=== PATIENT | male | born 1995 | race Caucasian/White ===

== ENCOUNTER 2018-03-16 14:08 | Emergency (ER) | payer OTHER ==
[2018-03-16] MEDS ORDERED: PROCHLORPERAZINE INJ 5 MG/ML 2 ML VIAL IV PRN (14:39)
[2018-03-16 14:41] LABS: ABS Basophils 0 10^3/ul (0-0.2); ABS Eosinophils 0.8 10^3/ul (0-0.6); ABS Lymphocytes 3.1 10^3/ul (1.0-4.8); ABS Monocytes 0.7 10^3/ul (0-0.8); ABS Neutrophils 3.9 10^3/ul (1.5-7.7); ABS Nucleated RBC 0.1 10^3/ul; Eosinophil % 9.2 % (0-6); Hematocrit 44 % (42-52); Hemoglobin 15.6 g/dl (14.0-18.0); Mean Corpuscular HGB Conc 35 g/dl (31-36); Mean Corpuscular Hemoglobin 28 pg (27-31); Mean Corpuscular Volume 79 fL (80-94); Mean Platelet Volume 9.1 um3 (7.4-10.4); Nucleated Red Blood Cells % 0.8; Platelet Count 195 10^3/ul (150-450); Red Blood Count 5.59 10^6/ul (4.0-5.4); Red Cell Distribution Width 13 % (10.5-15); White Blood Count 8.5 10^3/ul (3.5-10.8)
[2018-03-16 14:50] LABS: EGFR Non-African American 87.4 (>60)
[2018-03-16] MEDS ORDERED: PROCHLORPERAZINE INJ 5 MG/ML 2 ML VIAL ONE (14:51)
--- NOTE | 2018-03-16 19:34 | ED ---
Monico Rasmussen Stephanie, scribed for Gerardo Rock MD on 03/16/18 at 1425 . Substance Abuse/Use - HPI Summary HPI Summary: The pt is a 22 y/o M BIB police due to LOC on sidewalk. Per police, the pt has consumed alcohol and possible unknown drugs. Per police, the pt was found with a white powdery substance in his nose. He vomited on the way to the ED. HPI limited due to current AMS of the pt. - History Of Current Complaint Stated Complaint: 2208 Hx Obtained From: EMS, Other: - police Hx From Patient Unobtainable Due To: Altered Mental Status Onset/Duration of Drug/ETOH Abuse: Hours Ingestion History: Type/Name Of Drug - ETOH and possible unknown drugs ( according to police) Timing Of Abuse: Binge Use Severity Currently: Severe Character: Stuporous Aggravating Factor(s): Nothing Alleviating Factor(s): Nothing - Allergies/Home Medications Allergies/Adverse Reactions: Allergies Allergy/AdvReac Type Severity Reaction Status Date / Time No Known Allergies Allergy Verified 03/16/18 15:02 Home Medications: Home Medications NK [No Home Medications Reported] 03/16/18 [History Confirmed 03/16/18] PMH/Surg Hx/FS Hx/Imm Hx Sensory History: Denies: Hx Legally Blind EENT History: Denies: Hx Deafness - Surgical History Surgery Procedure, Year, and Place: unknown due to current AMS of pt Infectious Disease History: No Infectious Disease History: Denies: Traveled Outside the [place] in Last 30 Days - Family History Known Family History: Positive: Unknown - Unknown to current AMS of the pt - Social History Occupation: Student Lives: Dormitory/Roommates Alcohol Use: osvaldo Alcohol Amount: OSVALDO Substance Use Type: Reports: None Substance Use Comment - Amount & Last Used: OSVALDO Smoking Status (MU): Unknown if Ever Smoked Review of Systems - ROS Summary Review of Systems Summary: ROS limited due to current AMS of the pt. Positive: Vomiting All Other Systems Reviewed And Are Negative: No Physical Exam - Summary Physical Exam Summary: Appearance: The patient is well-nourished in no acute distress and in no acute pain. No signs of trauma. Skin: The skin is warm and dry and skin color reflects adequate perfusion. HEENT: The head is normocephalic and atraumatic. The pupils are 3-4 mm, equal and reactive. The conjunctivae are clear and without drainage. Nares are patent and without drainage. Mouth reveals moist mucous membranes and the throat is without erythema and exudate. The external ears are intact. The ear canals are patent and without drainage. The tympanic membranes are intact. Neck: the neck is supple with full range of motion and non-tender. There are no carotid bruits. There is no neck vein distension. Respiratory: Chest is non-tender. Lungs are clear to auscultation and breath sounds are symmetrical and equal. Cardiovascular: Heart is regular rate and rhythm. There is no murmur or rub auscultated. There is no peripheral edema and pulses are symmetrical and equal. Abdomen: The abdomen is soft and non-tender. There are normal bowel sounds heard in all four quadrants and there is no organomegaly palpated. Musculoskeletal: There is no back tenderness noted. Extremities are non-tender with full range of motion. There is good capillary refill. There is no peripheral edema or calf tenderness elicited. Neurological: Patient is stuporous, responds to noxious stimuli. The patient has symmetrical motor strength in all four extremities. Cranial nerves are grossly intact. Deep tendon reflexes are symmetrical and equal in all four extremities. Psychiatric: The patient has an appropriate affect and does not exhibit any anxiety or depression. Triage Information Reviewed: Yes Vital Signs On Initial Exam: Initial Vitals Temp Pulse Resp BP Pulse Ox 97.1 F 81 19 117/88 89 03/16/18 14:11 03/16/18 14:11 03/16/18 14:11 03/16/18 14:11 03/16/18 14:11 Vital Signs Reviewed: Yes Diagnostics - Vital Signs Vital Signs Temp Pulse Resp BP Pulse Ox 03/16/18 14:12 72 16 117/88 98 03/16/18 14:11 97.1 F 78 18 117/88 98 - Laboratory Lab Results: Lab Results 03/16/18 03/16/18 03/16/18 Range/Units 14:20 14:20 14:20 WBC 8.5 (3.5-10.8) 10^3/ul RBC 5.59 H (4.0-5.4) 10^6/ul Hgb 15.6 (14.0-18.0) g/dl Hct 44 (42-52) % MCV 79 L (80-94) fL MCH 28 (27-31) pg MCHC 35 (31-36) g/dl RDW 13 (10.5-15) % Plt Count 195 (150-450) 10^3/ul MPV 9.1 (7.4-10.4) um3 Neut % (Auto) 46.2 (38-83) % Lymph % (Auto) 36.0 (25-47) % [place] % (Auto) 8.1 H (0-7) % Eos % (Auto) 9.2 H (0-6) % Baso % (Auto) 0.5 (0-2) % Absolute Neuts (auto) 3.9 (1.5-7.7) 10^3/ul Absolute Lymphs (auto) 3.1 (1.0-4.8) 10^3/ul Absolute Monos (auto) 0.7 (0-0.8) 10^3/ul Absolute Eos (auto) 0.8 H (0-0.6) 10^3/ul Absolute Basos (auto) 0 (0-0.2) 10^3/ul Absolute Nucleated RBC 0.1 10^3/ul Nucleated RBC % 0.8 Sodium 140 (139-145) mmol/L Potassium 3.3 L (3.5-5.0) mmol/L Chloride 107 (101-111) mmol/L Carbon Dioxide 23 (22-32) mmol/L Anion Gap 10 (2-11) mmol/L BUN 24 (6-24) mg/dL Creatinine 1.06 (0.67-1.17) mg/dL Est GFR ( Amer) 112.4 (>60) Est GFR (Non-Af Amer) 87.4 (>60) BUN/Creatinine Ratio 22.6 H (8-20) Glucose 151 H (70-100) mg/dL Lactic Acid 2.0 (0.5-2.0) mmol/L Calcium 9.4 (8.6-10.3) mg/dL Total Bilirubin 0.90 (0.2-1.0) mg/dL AST 16 (13-39) U/L ALT 16 (7-52) U/L Alkaline Phosphatase 73 (34-104) U/L Total Protein 6.9 (6.4-8.9) g/dL Albumin 4.6 (3.2-5.2) g/dL Globulin 2.3 (2-4) g/dL Albumin/Globulin Ratio 2.0 (1-3) Salicylates < 2.50 (<30) mg/dL Acetaminophen < 15 mcg/mL Serum Alcohol 239 H (<10) mg/dL Result Diagrams: 03/16/18 14:20 03/16/18 14:20 Lab Statement: Any lab studies that have been ordered have been reviewed, and results considered in the medical decision making process. - EKG 14:25 Cardiac Rate: Bradycardia EKG Rhythm: Sinus Bradycardia - 54 BPM EKG Interpretation: probable early repolarization pattern, subtle STEMI score of 20.9 Re-Evaluation - Re-Evaluation First Eval Re-Evaluation Time: 14:39 Change: Unchanged - The pt is nauseated. Second Eval Re-Evaluation Time: 15:43 Change: Improved - The pt is stable, quiet, and maintaining his vitals. The pt' s pupil exam is unchaged: 3-4 mm and reactive. The pt makes purposeful movements. Third Eval Re-Evaluation Time: 18:53 Change: Improved - The pt awakened and feels better. Course/Dx - Course Course Of Treatment: Mr. Rice presented quite stuporous from [facility]. He was vomiting and uncooperative. He was given antinausea medication and had to briefly be restrained to protect him and the staff. He was clinically sober 5 1/2 hours later (presenting BA was 239) and called a sober friend to give him a ride home. - Diagnoses Provider Diagnoses: Alcohol intoxication Discharge - Sign-Out/Discharge Documenting (check all that apply): Discharge/Admit/Transfer - Discharge - Discharge Plan Condition: Stable Disposition: HOME Patient Education Materials: Alcohol Intoxication (ED), Abuse of Alcohol (ED) Referrals: [facility] - Dustin RAMOS [Primary Care Provider] - 2 Days Additional Instructions: Please return to the ED for new or worsening symptoms. - Billing Disposition and Condition Condition: STABLE Disposition: HOME The documentation as recorded by the Monico warren Stephanie accurately reflects the service I personally performed and the decisions made by me, Gerardo Rock MD.
[2018-03-16 19:42] VITALS: BP 143/81
== END 2018-03-16 19:30 | disposition home or self-care (01) ==
LOC: ED 14:08
DX: F10.129 Alcohol abuse with intoxication, unspecified (principal); Y90.7 Blood alcohol level of 200-239 mg/100 ml; R11.10 Vomiting, unspecified; R00.1 Bradycardia, unspecified
CPT/HCPCS: 36415; 80053; 80320; 80329; 83605; 85025; 96374; 99285; G0480; J0780